=== PATIENT | female | born 1985 | race African-American/Black ===

== ENCOUNTER 2018-06-05 02:46 | Emergency (ER) | payer OTHER ==
[~2018-06-05] VITALS: Ht 172.7 cm; Wt 131.1 kg
[~2018-06-05 02:46] MED LIST: CIPRO250 MG PO; NOHOMEMEDICATIONS; PERCOCET 5-3251 EACH PO
[2018-06-05] MEDS ORDERED: IBUPROFEN 400400 M2 PO (03:39)
[2018-06-05 04:24] VITALS: BP 173/100
== END 2018-06-05 04:26 | disposition home or self-care (01) ==
LOC: ER 02:46
DX: K08.89 Other specified disorders of teeth and supporting structures (principal); I10 Essential (primary) hypertension; Z88.5 Allergy status to narcotic agent

== ENCOUNTER 2019-03-23 14:03 | Inpatient (IN) | payer OTHER ==
[~2019-03-23] VITALS: Ht 170.2 cm; Wt 135.6 kg
[~2019-03-23 14:03] MED LIST changes: +IBUPROFEN 400400 M2 PO
[2019-03-23 14:14] VITALS: BP 153/91
[2019-03-23] MEDS ORDERED: TESSALON PERLE100 MG PO (16:19)
[2019-03-23] MEDS ORDERED: TAMIFLU75 MG PO (16:19)
[2019-03-23] MEDS ORDERED: VENTOLIN HFA 1818 GM INH (16:19)
[2019-03-23 18:18] LABS: ABSOLUTE NEUTROPHILS 5.1 thou/uL (1.4-8.2); BASOPHILS 1.2 % (0.0-2.0); EOSINOPHILS 0.7 % (0.0-3.0); HEMATOCRIT 38.9 % (37.0-47.0); HEMOGLOBIN 12.7 gm/dL (12.0-15.0); LYMPHOCYTES 25.1 % (24.0-44.0); MCH 24.9 pg (26.0-34.0); MCHC 32.5 g/dL (28.0-37.0); MCV 76.6 fL (80.0-100.0); MONOCYTES 10.4 % (1.0-8.0); PLATELET COUNT 210 thou/uL (150-400); POLYS 62.6 % (36.0-66.0); RBC 5.08 mil/uL (4.20-5.00); RDW 16.9 % (10.5-14.5); WBC 8.1 thou/uL (4.0-11.0)
[2019-03-23 18:24] LABS: CREATININE 1.1 mg/dL (0.6-1.0)
[2019-03-23 18:29] LABS: POTASSIUM 2.8 mmol/L (3.5-5.1)
[2019-03-23] MEDS ORDERED: NORVASC5 MG PO (19:26)
[2019-03-23 20:10] VITALS: BP 144/75
[2019-03-23 20:18] VITALS: BP 170/112
[2019-03-23 20:26] VITALS: BP 150/95
[2019-03-23 21:47] VITALS: BP 159/102
[2019-03-23 21:50] LABS: CHOLESTEROL 118 mg/dL (<200); HDL CHOLESTEROL 29 mg/dL (>40); LDL CHOLESTEROL 71 mg/dL (<100); SERUM ASSESSMENT Clear; TC:HDL 4.1 Ratio (Not establshd); TRIGLYCERIDE 90 mg/dL (<150); VLDL 18 mg/dL (<40)
[2019-03-23 21:51] LABS: MAGNESIUM 1.6 mg/dL (1.8-2.4)
[2019-03-23 22:19] LABS: FOLIC ACID 16.2 ng/mL (8.6-58.9); TSH 1.035 uIU/mL (0.358-3.740)
[2019-03-24 04:44] LABS: CALCIUM 8.7 mg/dL (8.5-10.1); CREATININE 0.9 mg/dL (0.6-1.0); MAGNESIUM 2.4 mg/dL (1.8-2.4)
[2019-03-24 04:47] LABS: POTASSIUM 4.2 mmol/L (3.5-5.1)
[2019-03-24 05:04] LABS: ABSOLUTE NEUTROPHILS 5.5 thou/uL (1.4-8.2); BASOPHILS 0.6 % (0.0-2.0); HEMATOCRIT 38.9 % (37.0-47.0); HEMOGLOBIN 12.7 gm/dL (12.0-15.0); LYMPHOCYTES 16.6 % (24.0-44.0); MCH 24.6 pg (26.0-34.0); MCHC 32.7 g/dL (28.0-37.0); MCV 75.3 fL (80.0-100.0); MONOCYTES 2.6 % (1.0-8.0); PLATELET COUNT 213 thou/uL (150-400); POLYS 80.2 % (36.0-66.0); RBC 5.17 mil/uL (4.20-5.00); RDW 16.5 % (10.5-14.5); WBC 6.9 thou/uL (4.0-11.0)
[2019-03-24 05:32] VITALS: BP 128/78
--- NOTE | 2019-03-24 06:04 | NUR ---
PT ARRIVED TO UNIT APPROX 2100, ADMISSION AND ASSESSMENT COMPLETED, CONSENTS SIGNED. PT IN DROPLET ISOLATION FOR FLU. A&Ox4, FREQ BARKING COUGH. IV FLUIDS STARTED, POTASSIUM AND MAGNESIUM REPLACEMENT GIVEN OVERNIGHT. GIVEN COUGH SYRUP x2 OVERNIGHT. HAD TWO INSTANCES OF DIARRHEA. DRINKING LARGE AMOUNTS OF WATER OVERNIGHT. NO OTHER CONCERNS, WILL CONTINUE TO MONITOR.
[2019-03-24 08:24] VITALS: BP 146/93
[2019-03-24 10:35] LABS: ANISOCYTOSIS 1+
[2019-03-24 15:59] VITALS: BP 152/103
--- NOTE | 2019-03-24 17:53 | NUR ---
LUNGS CLEAR AND DIMINISHED...HARSH NONPRODUCTIVE COUGH NOTED...O2 SAT 96% RA...INFLUENZA B POSITIVE...ISOLATION MAINTANED
[2019-03-24 19:10] VITALS: BP 139/98
[2019-03-25 04:37] VITALS: BP 172/99
[2019-03-25 07:25] VITALS: BP 144/97
--- NOTE | 2019-03-25 07:34 | NUR ---
ASSUMED CARE AT 1900. PT C/O HEADACHE WORSENED BY COUGHING. GAVE PRN COUGH SYRUP AND CODEINE-TYLENOL ONCE OVERNIGHT. LUNG SOUNDS DIMINISHED, STILL WITH BARKING COUGH BUT LESS SEVERE THAN PREVIOUS NIGHT. NO OTHER CONCERNS, SHIFT REPORT GIVEN AT 0700.
[2019-03-25] MEDS ORDERED: TAMIFLU75 MG PO (12:12)
[2019-03-25] MEDS ORDERED: FLONASE 0.05%50 MCG NASAL (12:12)
[2019-03-25] MEDS ORDERED: VENTOLIN HFA 1818 GM INH (12:12)
[2019-03-25] MEDS ORDERED: TOPROL XL25 MG PO (12:12)
[2019-03-25] MEDS ORDERED: TESSALON PERLE100 MG PO (12:12)
[2019-03-25] MEDS ORDERED: MUCINEX1200 MG PO (12:20)
[2019-03-25] MEDS ORDERED: CLARITIN10 M2 PO (12:20)
[2019-03-25 13:12] VITALS: BP 144/97
[2019-03-25 13:18] VITALS: BP 144/97
--- NOTE | 2019-03-25 13:33 | NUR ---
PT IN DROPLET PRECAUTIONS FOR INFLUENZA B...LUNGS DIMINISHED...PRODUCTIVE COUGH..
[2019-03-25] MEDS ORDERED: WORK EXCUSE (14:08)
== END 2019-03-25 14:26 | disposition home or self-care (01) | DRG 194 ==
LOC: ER 14:03 → EROBS 19:53 → 3W 19:53 → ENTRNSPT 03-25 14:19 → EDTRNSPTSTS 03-25 14:23 → 3W 03-25 14:26
PROVIDERS: Nurse Practitioner; Physician Assistant; ADMIT Internal Medicine
DX: J10.01 Influenza due to other identified influenza virus with the same other identified influenza virus pneumonia (principal); Z68.42 Body mass index [BMI] 45.0-49.9, adult; I10 Essential (primary) hypertension; E87.6 Hypokalemia; J10.1 Influenza due to other identified influenza virus with other respiratory manifestations; E66.01 Morbid (severe) obesity due to excess calories; Z79.899 Other long term (current) drug therapy; Z87.442 Personal history of urinary calculi; Z88.5 Allergy status to narcotic agent; Z28.21 Immunization not carried out because of patient refusal; J98.01 Acute bronchospasm
CPT/HCPCS: 10879

== ENCOUNTER 2020-06-04 07:35 | Emergency (ER) | payer OTHER ==
[~2020-06-04] VITALS: Ht 172.7 cm; Wt 135.2 kg
[~2020-06-04 07:35] MED LIST changes: +CLARITIN10 M2 PO; +FLONASE 0.05%50 MCG NASAL; +MUCINEX1200 MG PO; +NORVASC5 MG PO; +TAMIFLU75 MG PO; +TESSALON PERLE100 MG PO; +TOPROL XL25 MG PO; +VENTOLIN HFA 1818 GM INH; +WORK EXCUSE
[2020-06-04 07:44] VITALS: BP 185/121
[2020-06-04] MEDS ORDERED: NORVASC5 MG PO (07:50)
[2020-06-04] MEDS ORDERED: LOSARTAN POTASS50 MG PO (07:50)
[2020-06-04] MEDS ORDERED: AUGMENTIN 875-1 EACH PO (08:09)
== END 2020-06-04 08:33 | disposition home or self-care (01) ==
LOC: ER 07:35
DX: J03.90 Acute tonsillitis, unspecified (principal); H65.92 Unspecified nonsuppurative otitis media, left ear; I10 Essential (primary) hypertension; Z88.5 Allergy status to narcotic agent; Z79.899 Other long term (current) drug therapy; Z87.442 Personal history of urinary calculi